=== PATIENT | female | born 1965 | race Caucasian/White ===

== ENCOUNTER 2018-10-27 22:19 | Emergency (ER) | payer SELFPAY ==
[2018-10-27 22:36] VITALS: BP 123/77; PULSE 71; RESP 20; TEMP 98.6; O2SAT 95
--- NOTE | 2018-10-27 23:03 | C.PDOC ---
History Of Present Illness 53 year old female reports a week ago had pain and swelling to the distal right thumb, she applied warm soap and topical antibiotics with improvement but states 2 days ago the area became hot, painful, and throbbing. Denies fever. or trauma. Time Seen by Provider: 10/27/18 22:47 Chief Complaint (Nursing): Finger,Hand,&Wrist History Per: Patient History/Exam Limitations: no limitations Onset/Duration Of Symptoms: Days Current Symptoms Are (Timing): Still Present Quality: Other (Throbbing) Recent travel outside of the [place]: No Past Medical History Reviewed: Historical Data, Nursing Documentation, Vital Signs Vital Signs: Last Vital Signs Temp 98.6 F 10/27/18 22:32 Pulse 71 10/27/18 22:32 Resp 20 10/27/18 22:32 BP 123/77 10/27/18 22:32 Pulse Ox 95 10/27/18 22:32 Primary Care Provider: FAMILY PROVIDER,NO Family History: States: Unknown Family Hx - Social History Hx Alcohol Use: No Hx Substance Use: No - Immunization History Hx Tetanus Toxoid Vaccination: Yes Hx Influenza Vaccination: No Hx Pneumococcal Vaccination: No Review Of Systems Musculoskeletal: Positive for: Other (Right thumb pain and swelling) Skin: Negative for: Lesions Neurological: Negative for: Weakness, Numbness Physical Exam - Physical Exam Appears: Non-toxic Skin: Warm Head: Atraumatic, Normacephalic Eye(s): bilateral: Normal Inspection Extremity: Capillary Refill (<2 seconds), Other (Swelling and erythema to medial aspect of cuticle of right thumb, no pus collection) Pulses: Left Radial: Normal, Right Radial: Normal Neurological/Psych: Oriented x3, Normal Speech, Normal Motor, Normal Sensation ED Course And Treatment O2 Sat by Pulse Oximetry: 95 (Room air) Medical Decision Making Medical Decision Making: Patient with paronychia, does not require I&D at this time. Disposition Counseled Patient/Family Regarding: Diagnosis, Need For Followup, Rx Given - Disposition Disposition: HOME/ ROUTINE Disposition Time: 23:04 Condition: STABLE Prescriptions: Cephalexin [Keflex] 500 mg PO TID 7 Days capsule Ibuprofen [Motrin Tab] 600 mg PO TID #21 tab Instructions: Paronychia Forms: [facility] ([place]), General Discharge Instructions - Clinical Impression Clinical Impression: Paronychia of thumb, right - PA / MEDICAL ASSISTING INSTRUCTOR / Resident Statement MD/DO has reviewed & agrees with the documentation as recorded. - Scribe Statement The provider has reviewed the documentation as recorded by the Scribmonica Pandey All medical record entries made by the Garo were at my direction and personally dictated by me. I have reviewed the chart and agree that the record accurately reflects my personal performance of the history, physical exam, medical decision making, and the department course for this patient. I have also personally directed, reviewed, and agree with the discharge instructions and disposition.
== END 2018-10-27 23:20 | disposition home or self-care (01) ==
LOC: C.ER 22:19
DX: L03.011 Cellulitis of right finger (principal)